=== PATIENT | male | born 1980 | race Caucasian/White ===

== ENCOUNTER 2019-05-08 19:55 | Emergency (ER) | payer MEDICAID ==
[~2019-05-08] VITALS: Ht 152.4 cm; Wt 70.1 kg
[~2019-05-08 19:55] MED LIST: AMOX500C2 PO; IBUP-1541 PO
[2019-05-08 19:57] VITALS: BP 156/81; PULSE 80; RESP 18; Ht 152.4 cm; Wt 70.1 kg
[2019-05-08] MEDS ORDERED: D-ME118S24 PO (20:50)
[2019-05-08] MEDS ORDERED: ACET-141 PO (20:50)
[2019-05-08] MEDS ORDERED: ALBU18HF INHALATION (20:50)
[2019-05-08] MEDS ORDERED: IBUP-1542 PO (20:50)
--- NOTE | 2019-05-08 20:55 | ERD ---
ER Documentation Chief Complaint Chief Complaint COUGH X'S 8 DAYS HPI 39-year-old male with no significant past medical history presents for cough x3 days. He is also had on and off fever that started to be subjective. The cough is noted to be productive mucus.. He has taken wium-ugj-ocyszdw cough medication, he does not know the name however he states that it is not helping. Denies chest pain or shortness of breath. Denies abdominal pain, nausea, vomiting. No other modifying factors noted, no other treatments tried at home. ROS All systems reviewed and are negative except as per history of present illness. Medications Home Meds Active Scripts D-Methorphan Hb/P-Epd HCl/Bpm (Ugzviwlikj-Blxsisvoqrh-Qp Syr) 118 Ml Syrup, 5 ML PO Q4H PRN for COUGH for 10 Days, #1 BOTTLE Prov:DAVID AARON 05/08/19 Albuterol Sulfate* (Ventolin HFA*) 18 Gm Hfa.aer.ad, 2 PUFF INHALATION Q4H PRN for shortness of breath/cough, #1 INHALER Prov:DAVID AARON 05/08/19 Acetaminophen* (Acetaminophen*) 500 MG Extra Strength Tablet, 500 MG PO Q4H PRN for PAIN AND OR ELEVATED TEMP, #30 TAB Prov:AARONDAVID 05/08/19 Ibuprofen* (Motrin*) 600 Mg Tab, 600 MG PO Q6H PRN for PAIN AND OR ELEVATED TEMP, #30 TAB Prov:AARONDAVID 05/08/19 Ibuprofen* (Ibuprofen*) 400 Mg Tablet, 400 MG PO Q8 for PAIN AND OR ELEVATED TEMP, #30 TAB Prov:MANDY COLE NP 05/27/15 Amoxicillin* (Amoxicillin*) 500 Mg Cap, 500 MG PO TID for 10 Days, CAP Prov:MANDY COLE 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 05/27/15 Allergies Allergies: Coded Allergies: No Known Allergy (Unverified , 05/08/19) PMhx/Soc Medical and Surgical Hx: pt denies Medical Hx, pt denies Surgical Hx Hx Alcohol Use: No Hx Substance Use: No Hx Tobacco Use: No FmHx Family History: No coronary disease Physical Exam Vitals Vital Signs Date Temp Pulse Resp B/P (MAP) Pulse Ox O2 O2 Flow FiO2 Time Delivery Rate 05/08/19 98.4 80 18 156/81 99 19:57 (106) Physical Exam Const: No acute distress Head: Atraumatic Eyes: Normal Conjunctiva ENT: Normal External Ears, bilateral tympanic membrane intact without erythema or bulging noted, nose and Mouth examination normal, no tonsillar swelling or exudate noted Neck: Full range of motion. No meningismus. Resp: Clear to auscultation bilaterally, no wheezing, rales, rhonchi Cardio: Regular rate and rhythm, no murmurs Skin: No petechiae or rashes Ext: No cyanosis, or edema Neur: Awake and alert Psych: Normal Mood and Affect Procedures/MDM Medical Decision Making: Differential diagnosis includes but not limited to upper respiratory infection, pneumonia, sepsis, meningitis, influenza. Patient appeared well on physical examination, nontoxic appearing. Lungs were clear to auscultation bilaterally. There is low suspicion for pneumonia, sepsis, meningitis. Patient likely has an upper respiratory infection, likely viral. Therefore antibiotics not indicated. Discussed symptomatic treatment with patient who agrees with plan. Patient given prescription for supportive medication(s). Patient advised to follow up with PCP in 1-2 days. Patient advised to return to ED for new or worsening symptoms. Patient stable on discharge from the ED. Disclaimer: Inadvertent spelling and grammatical errors are likely due to EHR/dictation software use and do not reflect on the overall quality of patient care. Also, please note that the electronic time recorded on this note does not necessarily reflect the actual time of the patient encounter. Departure Diagnosis: Primary Impression: Cough Condition: Fair Patient Instructions: Preventing Common Respiratory Infections Referrals: [facility] YOU HAVE RECEIVED A MEDICAL SCREENING EXAM AND THE RESULTS INDICATE THAT YOU DO NOT HAVE A CONDITION THAT REQUIRES URGENT TREATMENT IN THE EMERGENCY DEPARTMENT. FURTHER EVALUATION AND TREATMENT OF YOUR CONDITION CAN WAIT UNTIL YOU ARE SEEN IN YOUR DOCTORS OFFICE WITHIN THE NEXT 1-2 DAYS. IT IS YOUR RESPONSIBILITY TO MAKE AN APPOINTMENT FOR FOLOW-UP CARE. IF YOU HAVE A PRIMARY DOCTOR --you should call your primary doctor and schedule an appointment IF YOU DO NOT HAVE A PRIMARY DOCTOR YOU CAN CALL OUR PHYSICIAN REFERRAL HOTLINE AT IF YOU CAN NOT AFFORD TO SEE A PHYSICIAN YOU CAN CHOSE FROM THE FOLLOWING [facility] [id number] [facility]. [facility] [address] [facility] [facility] [address] [facility] [address] [facility]. [facility] [address] [facility]. [facility] [address] Additional Instructions: Llame al doctor MAANA y anastasia ricky MAGGI PARA DENTRO DE 1-2 SCRUGGS.Dgale a la secretaria que nosotros le instruimos hacer esta maggi.Avise o llame si murray condicin se empeora antes de la maggi. Regresa aqui si peor o no mejor. DAVID AARON DO May 08, 2019 20:54
== END 2019-05-08 20:51 | disposition home or self-care (01) ==
LOC: E/R 19:55
DX: R05 Cough (principal)
CPT/HCPCS: 99283